=== PATIENT | male | born 2000 | race Caucasian/White ===

== ENCOUNTER 2024-10-30 00:21 | Emergency (ER) | payer MEDICAID, SELFPAY ==
[2024-10-30 00:53] VITALS: BP 126/66; PULSE 78; RESP 18; TEMP 36.9; O2SAT 98; BMI 28.4
--- NOTE | 2024-10-30 01:12 | EDNOTE_ITS ---
Lower Extremity Injury RME/HPI General Chief Complaint: Ankle/Foot Injury Stated Complaint: LEFT BIG TOE PROBLEM Time Seen by Provider: 10/30/24 00:55 Arrival date/time: 10/30/24 00:21 Related Data Previous Rx's ?Medication ?Instructions ?Recorded cephalexin 500 mg tablet 1,000 mg (2 x 500 mg) PO BID 7 10/30/24 days #28 tabs Allergies Allergy/AdvReac Type Severity Reaction Status Date / Time No Known Allergies Allergy Verified 10/30/24 00:23 Review of Systems Review of Systems Systems Reviewed: All systems reviewed, normal except as documented Past Medical History Social History SMOKING STATUS: Never smoker Past Medical History Comments PMH COMMENT: Previous history of ingrown toenails. ED Exam Narrative Physical exam: A&O, afebrile and non-toxic appearing 23 year old male , no acute distress. Bilateral great toenails cut extremely short. Left great toe with medial and lateral edges ingrown with current discharge. Moves all extremities well. Course Course Course Narrative: Patient was advised of the treatment options for his ingrown toenail. These options include: #1) Provider recommended: Removal of the entire toenail of the left great toe due to medial and lateral ingrown edges. #2) oral antibiotics and soaks at home with Epsom salts. Patient chooses to be discharged home with Oral antibiotics and do Epsom Salt soaks at home. Patient was given his first dose of keflex prior to discharge. Quality Measures none Orders Category Date Time Status cephALEXin [Keflex] Med 10/30/24 01:15 Discontinued 500 mg PO X1 ONE Vital Signs Vital signs: Vital Signs Temperature 98.4 F 10/30/24 00:53 Pulse Rate 78 10/30/24 00:53 Respiratory Rate 18 10/30/24 00:53 Blood Pressure 126/66 10/30/24 00:53 Pulse Oximetry (%) 98 10/30/24 00:53 Oxygen Delivery Method Room Air 10/30/24 00:53 Extremity Injury, Lower MDM Narrative MDM Narrative:: Symptoms, exam and diagnostic studies are consistent with: Left great toenail. Bilateral edges ingrown. Patient was discharged home in stable condition. Patient/family advised to follow-up with their PCP in 24-48 hours. Encouraged to return to the ED for any new or worsening symptoms. Patient data External records reviewed:: None Clinical information provided by:: patient Social determinants that could affect healthcare access:: none Patient has the following chronic illnesses:: N/A How is presenting disease/condition affected by chronic disease/condition?: no chronic disease Evaluation data The following diagnostics were reviewed and interpreted by me:: other (specify) (N/A) Lab and/or radiology exams considered but not ordered:: N/A Interpretation Summary: N/A Medications / Prescriptions Medications or Prescriptions considered but not ordered:: N/A Medication administrations:: Medication Administration History Discontinued Medications Cephalexin HCl (Cephalexin 250 Mg Capsule) 500 mg PO X1 ONE Stop: 10/30/24 01:16 Last Admin: 10/30/24 01:21 Dose: 500 mg Documented By: CVL Keflex 500 mg p.o. Consultations Consultation(s) initiated? (list below): No Diagnosis Extremity Injury, Lower Differential Diagnosis: other (Ingrown toenail, left g reat toe.) Most likely diagnosis given after review of the tests above:: Ingrown toenail, bilateral edges of left great toe. Admission Indicated Admission indicated?: not indicated Explain why admission is indicated or not indicated:: Patient is stable for discharge Admission Request Was there a request for admission?: No Disposition Plan Disposition Plan: Discharge Discharge Attestation Discharge Attestation: The patient and all family members were given an opportunity to ask questions and understood the discharge instructions. Discharge instructions specifically effects, indications for sooner follow up or return to the emergency department, and the expected course of current diagnosis. Patient condition: Stable Discharge Plan Plan Patient Disposition: HOME (Self Care) Discharge Disposition comment: Stable Prescriptions/Referrals Prescriptions/Med Rec: New cephalexin 500 mg tablet 1,000 mg PO BID 7 Days Qty: 28 0RF Problem List Clinical Impression: Ingrown toenail of left foot with infection Patient/Caregiver Discharge Instructions Education Materials: Understanding Ingrown Toenails, ED Toenail Ingrown Infec Abx Onl Additional Instructions: Take the antibiotics as prescribed and complete the course even though you may be feeling better. Soak the left foot in Epsom salts and massage the edges of the ingrown areas. Follow-up with your primary care physician in 24 to 48 hours. Return to the ED for any new or worsening symptoms. Print Language: Faroese Stand Alone Forms: Lurdes Award Info., Patient Portal Info Letter PA/[employer] Supervising Physician PA/[employer] Supervising Physician: Dr. Lopez
== END 2024-10-30 02:06 | disposition home or self-care (01) ==
LOC: SERX 03:26
PROVIDERS: Emergency Provider Emergency Medicine; PCP Family Medicine
DX: L60.0 Ingrowing nail (principal)
CPT/HCPCS: 99283; A9270

== ENCOUNTER 2024-11-25 20:17 | Emergency (ER) | payer MEDICAID, SELFPAY ==
[2024-11-25 20:18] VITALS: BMI 38.0
--- NOTE | 2024-11-25 21:03 | PD.EDDENTL ---
ED Dental RME/HPI General Chief complaint: Dental/Oral/Throat Stated complaint: THROAT PAIN Time Seen by Provider: 11/25/24 20:25 Arrival date/time: 11/25/24 20:17 This is a case of 23-year-old male with no medical history came into the emergency room due to sore throat for 2 days no other symptoms noted no fever no chills no cough no congestion Limitations: no limitations Related Data Previous Rx's ?Medication ?Instructions ?Recorded amoxicillin 875 mg-potassium 1 tab PO Q12H #20 tabs 11/25/24 clavulanate 125 mg tablet lidocaine HCl 2 % mucosal solution 10 ml PO Q4HR PRN sore throat #100 11/25/24 (Lidocaine Viscous) mL Allergies Allergy/AdvReac Type Severity Reaction Status Date / Time No Known Allergies Allergy Verified 11/25/24 20:19 Review of Systems Review of Systems Systems Reviewed: All systems reviewed, normal except as documented Constitutional Constitutional: Reports system reviewed and no additional complaints, except as documented and Reports as per HPI Cardiovascular Cardiovascular: Reports system reviewed and no additional complaints, except as documented and Reports as per HPI Respiratory Respiratory: Reports system reviewed and no additional complaints, except as documented Gastrointestinal Gastrointestinal: Reports system reviewed and no additional complaints, except as documented and Reports as per HPI Neurologic Neurologic: Reports system reviewed and no additional complaints, except as documented and Reports as per HPI Past Medical History Social History SMOKING STATUS: Never smoker ED Exam General Limitations: Present no limitations General appearance: Present alert, in no apparent distress and other (Is awake alert oriented not in distress nontoxic looking well-hydrated well-nourished) Head Head exam: Present atraumatic, normocephalic and normal inspection Eye Eye exam: Present normal appearance, PERRL and EOMI ENT ENT exam: Present normal exam, normal oropharynx, mucous membranes moist and other (Pharynx red tonsils were swollen red with exudate no peritonsillar abscess no drooling of saliva patient can speak full sentences Centor criteria is 1/4 the rest of the HEENT exam is normal) Neck Neck exam: Present normal inspection, full ROM and trachea midline Chest Chest inspection: Present normal inspection and symmetric chest wall rise; Absent tenderness Respiratory Respiratory exam: Present normal lung sounds bilaterally; Absent respiratory distress, wheezes, stridor, accessory muscle use or prolonged expiratory phase Cardiovascular Cardiovascular exam: Present regular rate, normal rhythm and normal heart sounds; Absent bradycardia, tachycardia, irregular rhythm, systolic murmur or diastolic murmur Abdominal Exam Abdominal exam: Present soft and normal bowel sounds Extremities Exam Extremities exam: Present normal inspection and full ROM Back Exam Back exam: Present normal inspection and full ROM Neurological Exam Neurological exam: Present alert, oriented X3, CN II-XII intact, normal gait and reflexes normal; Absent motor sensory deficit Psychiatric Psychiatric exam: Present normal affect and normal mood Skin Skin exam: Present warm, dry, intact and normal color Course Quality Measures none Vital Signs Vital signs: Vital signs stable oxygen saturation is normal Dental / Oral MDM Narrative MDM Narrative:: This is a case of 23-year-old male with no medical history came into the emergency room due to sore throat for 2 days no other symptoms noted no fever no chills no cough no congestion physical examination patient is awake alert oriented not in distress nontoxic looking patient tonsils noted to be swollen red with exudate pharynx red no peritonsillar abscess no drooling of saliva no muffled voice based on my physical examination and history patient symptoms suggestive of acute tonsillitis patient was discharged with Augmentin and lidocaine viscous patient will follow-up with PCP in 2 days for reevaluation and for any worsening symptoms or any emergent concern return to the emergency room immediately or call 911 Patient was discharged with comfortable condition walking with stable gait. Patient verbalized no further complains explained diagnosis and answered patient question. Patient is comfortable with the proposed management plan including the need to follow up with his/her primary care physician and any specialist if applicable Discussed patient for any urgent condition or worsening sx, He/She needed to go to emergency room immediately or call 911. Patient acknowledge the responsibility to follow up as instructed and to monitor her/his symptoms. For any persistence of the symptoms for more than 3-5 days return precaution advised. Discussed the result of the test and was given printed discharge instruction Patient data External records reviewed:: [facility] previous records Clinical information provided by:: patient Social determinants that could affect healthcare access:: none Patient has the following chronic illnesses:: None How is presenting disease/condition affected by chronic disease/condition?: no chronic disease Evaluation data The following diagnostics were reviewed and interpreted by me:: other (specify) Lab and/or radiology exams considered but not ordered:: None Interpretation Summary: None Medications / Prescriptions Medications or Prescriptions considered but not ordered:: Given Medication administrations:: Given Consultations Consultation(s) initiated? (list below): No Diagnosis Dental Differential Diagnosis: other (Tonsillitis) Most likely diagnosis given after review of the tests above:: Tonsillitis Admission Indicated Admission indicated?: not indicated Explain why admission is indicated or not indicated:: Not indicated Admission Request Was there a request for admission?: No Admission Attestation Admission request attestation: Not indicated Disposition Plan Disposition Plan: Discharge Discharge Attestation Discharge Attestation: The patient and all family members were given an opportunity to ask questions and understood the discharge instructions. Discharge instructions specifically effects, indications for sooner follow up or return to the emergency department, and the expected course of current diagnosis. Patient condition: Stable Discharge Plan Plan Patient Disposition: HOME (Self Care) Patient condition on transfer: Stable Prescriptions/Referrals Prescriptions/Med Rec: New amoxicillin-pot clavulanate 875-125 mg tablet 1 tab PO Q12H Qty: 20 0RF lidocaine HCl [Lidocaine Viscous] 2 % solution 10 ml PO Q4HR PRN (Reason: sore throat) Qty: 100 0RF Problem List Clinical Impression: Acute tonsillitis Patient/Caregiver Discharge Instructions Education Materials: Tonsillitis in Adults Additional Instructions: Follow-up with your primary care physician in 2 days for reevaluation worsening symptoms or any emergent concern call 911 or go to the nearest emergency room keep hydrated finish the course of antibiotic warm saline gargle is advised Print Language: Canadian Stand Alone Forms: Lurdes Award Info., Patient Portal Info Letter PA/MELISSA Supervising Physician PA/MELISSA Supervising Physician: Dr. Sylvester Morales
[2024-11-25 21:18] VITALS: BP 131/83; PULSE 92; RESP 16; TEMP 37.2; O2SAT 98
== END 2024-11-25 21:19 | disposition home or self-care (01) ==
LOC: SERX 21:51
PROVIDERS: Emergency Provider Emergency Medicine
DX: J03.90 Acute tonsillitis, unspecified (principal)
CPT/HCPCS: 99281

== ENCOUNTER 2024-12-06 09:55 | Emergency (ER) | payer MEDICAID, SELFPAY ==
[2024-12-06 10:25] VITALS: BP 123/83; PULSE 88; RESP 18; TEMP 36.9; O2SAT 99; BMI 30.4
--- NOTE | 2024-12-06 10:29 | PD.EDRME ---
Rapid Medical Screening Exam [facility] Arrival date/time: 12/06/24 09:55 24-year-old male with no known medical history presents to the emergency room with a chief complaint of facial swelling, difficulty breathing, lip swelling x 2 days. Patient states symptoms began yesterday and have progressively gotten worse. Patient uses EpiPen last night. I have greeted and performed a focused initial assessment of this patient. A comprehensive ED assessment and evaluation of the patient, analysis of all test results, and completion of the medical decision making process will be conducted by additional ED providers. Chief Complaint: Shortness of Breath/Dyspnea Time Seen by Provider: 12/06/24 10:05 Vital signs: Vital Signs Temperature 98.5 F 12/06/24 10:25 Pulse Rate 88 12/06/24 10:25 Respiratory Rate 18 12/06/24 10:25 Blood Pressure 123/83 12/06/24 10:25 Pulse Oximetry (%) 99 12/06/24 10:25 Oxygen Delivery Method Room Air 12/06/24 10:25 Vital signs reviewed by provider: Yes
[2024-12-06] MEDS: DEXAMETHASONE SOD PHOS INJ 10 MG/ML VIAL PO (10:42)
[2024-12-06] MEDS: DiphenhydrAMINE ELIX 25 MG/10 ML UDC PO (10:43)
[2024-12-06] MEDS: FAMOTIDINE 20 MG TABLET PO (10:43)
--- NOTE | 2024-12-06 12:02 | EDNOTE_ITS ---
ED SOB =RME/HPI General Chief Complaint: Shortness of Breath/Dyspnea Stated Complaint: SOB SINCE LAST NIGHT, SWELLING OF FACE/LIPS Time Seen by Provider: 12/06/24 10:05 Source: patient Arrival date/time: 12/06/24 09:55 24-year-old male with no known medical history presents to the emergency room with a chief complaint of facial swelling, difficulty breathing, lip swelling x 2 days. Patient states symptoms began yesterday and have progressively gotten worse. Patient uses EpiPen last night. Mode of arrival: ambulatory Limitations: no limitations RME / HPI RME / HPI Narrative: 12/06/24 09:55 24-year-old male with no known medical history presents to the emergency room with a chief complaint of facial swelling, difficulty breathing, lip swelling x 2 days. Patient states symptoms began yesterday and have progressively gotten worse. Patient uses EpiPen last night. I have greeted and performed a focused initial assessment of this patient. A comprehensive ED assessment and evaluation of the patient, analysis of all test results, and completion of the medical decision making process will be conducted by additional ED providers. Related Data Previous Rx's ?Medication ?Instructions ?Recorded amoxicillin 875 mg-potassium 1 tab PO Q12H #20 tabs clavulanate 125 mg tablet lidocaine HCl 2 % mucosal solution 10 ml PO Q4HR PRN s ore throat #100 11/25/24 (Lidocaine Viscous) mL Allergies Allergy/AdvReac Type Severity Reaction Status Date / Time No Known Allergies Allergy Verified 12/06/24 09:58 Review of Systems Review of Systems Systems Reviewed: All systems reviewed, normal except as documented Constitutional Constitutional: Reports system reviewed and no additional complaints, except as documented, Denies fatigue, Denies fever(s), Denies headache(s) and Denies weakness Eyes Eyes: Reports system reviewed and no additional complaints, except as doc umented, Denies blurry vision and Denies change in vision ENT Ears, Nose, Mouth, and Throat: Reports system reviewed and no additional complaints, except as documented, Denies otalgia, Denies headache(s), Reports lip swelling, Denies nasal congestion, Denies throat swelling, Denies tongue swelling and Denies vertigo Cardiovascular Cardiovascular: Reports system reviewed and no additional complaints, except as documented, Denies chest pain, Denies dyspnea and Denies dyspnea on exertion Respiratory Respiratory: Reports system reviewed and no additional complaints, except as documented, Denies chest congestion, Denies cough, Denies dyspnea, Denies dyspnea on exertion and Denies wheezing Gastrointestinal Gastrointestinal: Reports system reviewed and no additional complaints, except as documented, Denies abdominal pain, Denies cramping, Denies nausea and Denies vomiting Genitourinary Genitourinary: Reports system reviewed and no additional complaints, except as documented, Denies dysuria and Denies hematuria Musculoskeletal Musculoskeletal: Reports system reviewed and no additional complaints, except as documented and Denies back pain Integumentary/Breasts Skin/Breast: Reports system reviewed and no additional complaints, except as documented and Denies wounds Neurologic Neurologic: Reports system reviewed and no additional complaints, except as documented, Denies confusion, Denies headache(s), Denies lack of coordination, Denies vertigo and Denies weakness Psychiatric Psychiatric: Reports system reviewed and no additional complaints, except as documented, Denies anxiety, Denies confusion, Denies depression, Denies paranoia, Denies suicidal ideation and Denies tactile hallucinations Endocrine Endocrine: Reports system reviewed and no additional complaints, except as documented and Denies fatigue Hematologic/Lymphatic Hematologic/Lymphatic: Reports system reviewed and no additional complaints, except as documented and Denies lymphadenopathy Allergic/Immunologic Allergic/Immunologic: Reports system reviewed and no additional complaints, except as documented, Reports lip swelling, Reports seasonal rhinorrhea, Denies throat swelling, Denies tongue swelling, Denies urticaria and Denies wheezing ED Exam General Limitations: Present no limitations General appearance: Present alert and in no apparent distress Head Head exam: Present atraumatic Eye Eye exam: Present normal appearance, PERRL and EOMI ENT ENT exam: Present normal exam, normal oropharynx and mucous membranes moist Neck Neck exam: Present normal inspection, full ROM and trachea midline Chest Chest inspection: Present normal inspection and symmetric chest wall rise Respiratory Respiratory exam: Present normal lung sounds bilaterally; Absent respiratory distress, wheezes, stridor, accessory muscle use or prolonged expiratory phase Cardiovascular Cardiovascular exam: Present regular rate, normal rhythm and normal heart sounds; Absent tachycardia Abdominal Exam Abdominal exam: Present soft and normal bowel sounds Extremities Exam Extremities exam: Present normal inspection and full ROM Back Exam Back exam: Present normal inspection and full ROM Neurological Exam Neurological exam: Present alert, oriented X3 and CN II-XII intact Psychiatric Psychiatric exam: Present normal affect and normal mood Skin Skin exam: Present warm, dry, intact and normal color Course Quality Measures none Orders Category Date Time Status Dexamethasone Inj [Decadron Inj] Med 12/06/24 10:27 Discontinued 10 mg PO X1 ONE DiphenhydrAMINE [Benadryl] Med 12/06/24 10:27 Discontinued 25 mg PO X1 ONE Famotidine [Pepcid] Med 12/06/24 10:27 Discontinued 20 mg PO X1 ONE Vital Signs Vital signs: Vital Signs Temperature 98.5 F 12/06/24 10:25 Pulse Rate 88 12/06/24 10:25 Respiratory Rate 18 12/06/24 10:25 Blood Pressure 123/83 12/06/24 10:25 Pulse Oximetry (%) 99 12/06/24 10:25 Oxygen Delivery Method Room Air 12/06/24 10:25 Shortness of Breath / Dyspnea MDM Narrative MDM Narrative:: 24-year-old male with no known medical history presents to the emergency room with a chief complaint of facial swelling, difficulty breathing, lip swelling x 2 days. Patient states symptoms began yesterday and have progressively gotten worse. Patient uses EpiPen last night. Patient is hemodynamically stable and in no apparent distress Physical examination shows some lip swelling and right-sided facial swelling. Patient states his symptoms began yesterday and this morning he woke up with the lip swelling. Antihistamines were given with significant improvement to the patient's symptoms. Physical examination shows clear bilateral lung sounds there is no wheezing stridor or any abnormal breath sounds. There is no throat swelling or tongue swelling noted. O2 saturation is 99% on room air. The patient was kept here in the emergency room for observation for 2 hours Patient was discharged and educated to follow-up with primary care provider in the next 24 to 48 hours and return to the emergency room for any evidence of worsening signs or symptoms Patient data External records reviewed:: [facility] previous records Clinical information provided by:: patient Social determinants that could affect healthcare access:: none Patient has the following chronic illnesses:: N/A How is presenting disease/condition affected by chronic disease/condition?: no chronic disease Evaluation data The following diagnostics were reviewed and interpreted by me:: lab results and radiology exam(s) Lab and/or radiology exams considered but not ordered:: Labs and radiology exams considered and ordered Interpretation Summary: N/A Medications / Prescriptions Medications or Prescriptions considered but not ordered:: Medication given Medication administrations:: Medication Administration History Discontinued Medications Dexamethasone Sodium Phosphate (Dexamethasone Sod Phos Inj 10 Mg/Ml Vial) 10 mg PO X1 ONE Stop: 12/06/24 10:28 Last Admin: 12/06/24 10:42 Dose: 10 mg Documented By: Diphenhydramine HCl (Diphenhydramine Elix 25 Mg/10 Ml Udc) 25 mg PO X1 ONE Stop: 12/06/24 10:28 Last Admin: 12/06/24 10:43 Dose: 25 mg Documented By: Famotidine (Famotidine 20 Mg Tablet) 20 mg PO X1 ONE Stop: 12/06/24 10:28 Last Admin: 12/06/24 10:43 Dose: 20 mg Documented By: Medication given Consultations Consultation(s) initiated? (list below): No Diagnosis Shortness of Breath Differential Diagnosis: other (Allergic reaction/anaphylactic reaction/angioedema) Most likely diagnosis given after review of the tests above:: Allergic reaction Admission Indicated Admission indicated?: not indicated Admission Request Was there a request for admission?: No Disposition Plan Disposition Plan: Discharge Discharge Attestation Discharge Attestation: The patient and all family members were given an opportunity to ask questions and understood the discharge instructions. Discharge instructions specifically effects, indications for sooner follow up or return to the emergency department, and the expected course of current diagnosis. Patient condition: Stable Discharge Plan Plan Patient Disposition: HOME (Self Care) Discharge Disposition comment: Stable Prescriptions/Referrals Prescriptions/Med Rec: No Action amoxicillin-pot clavulanate 875-125 mg tablet 1 tab PO Q12H Qty: 20 0RF lidocaine HCl [Lidocaine Viscous] 2 % solution 10 ml PO Q4HR PRN (Reason: sore throat) Qty: 100 0RF Problem List Clinical Impression: Allergic reaction Patient/Caregiver Discharge Instructions Additional Instructions: Please follow-up with your primary care provider in the next 24 to 48 hours For any evidence of worsening signs or symptoms return to the emergency room immediately Print Language: South African Stand Alone Forms: Lurdes Award Info., Patient Portal Info Letter PA/[employer] Supervising Physician PA/[employer] Supervising Physician: Dr. Florentino
== END 2024-12-06 12:30 | disposition home or self-care (01) ==
LOC: SERX 12:42
PROVIDERS: Emergency Provider Family Medicine
DX: T78.40XA Allergy, unspecified, initial encounter (principal); X58.XXXA Exposure to other specified factors, initial encounter
CPT/HCPCS: 99283; J1100; A9270

== ENCOUNTER 2024-12-25 11:17 | Emergency (ER) | payer MEDICAID, SELFPAY ==
[2024-12-25 11:25] VITALS: BP 147/79; PULSE 96; RESP 20; TEMP 36.8; O2SAT 98; BMI 41.6
--- NOTE | 2024-12-25 11:27 | XR_ITS ---
Examination: AP chest single view Technique one AP portable upright chest single view Date and time: December 25, 2024 1221 hours INDICATIONS: Shortness of breath today. FINDINGS: Normal heart size. Lungs are clear. The osseous structures are intact IMPRESSION: No active disease
--- NOTE | 2024-12-25 11:42 | PD.EDALLER ---
ED Allergic Reaction RME/HPI General Chief complaint: Shortness of Breath/Dyspnea Stated complaint: CAN'T BREATH Time Seen by Provider: 12/25/24 11:29 Arrival date/time: 12/25/24 11:17 RME / HPI RME / HPI narrative: 24-year-old male patient came in for evaluation regarding complaints of shortness of breath. Patient been having on and off hives for several months at least 3 months, and this morning patient woke up with lips swollen and throat feels closing and shortness of breath. Patient told me that he just finished cephalexin few days ago for infection but the patient does not know that was started by his PCP. Patient denies any chest pain. Denies any other complaints except for itchiness. No medication was taken prior to ER visit. Related Data Previous Rx's ?Medication ?Instructions ?Recorded amoxicillin 875 mg-potassium 1 tab PO Q12H #20 tabs 11/25/24 clavulanate 125 mg tablet lidocaine HCl 2 % mucosal solution 10 ml PO Q4HR PRN sore throat #100 11/25/24 (Lidocaine Viscous) mL cetirizine 10 mg tablet (Zyrtec) 10 mg PO QDAY PRN allergy symptoms 12/25/24 #10 tabs famotidine 40 mg tablet (Pepcid) 40 mg PO BID #20 tabs 12/25/24 prednisone 50 mg tablet 50 mg PO QDAY #7 tabs 12/25/24 Allergies Allergy/AdvReac Type Severity Reaction Status Date / Time diphenhydramine (From Allergy Verified 12/25/24 12:19 Benadryl) Review of Systems Review of Systems Narrative Review of Systems: Review of system reviewed and within normal limits except mentioned in HPI ED Exam Narrative Physical exam: VITAL SIGNS: Reviewed. GENERAL APPEARANCE: Alert and interactive, follows commands, no acute distress, HEAD AND FACE: Non-traumatic. ENT: PERRL, pink conjunctivitis, eyelid no trauma, Mucous membrane moist. Upper and lower lips slightly swollen, no rashes noted on the oral mucosa, uvula not swollen tonsil not swollen uvula in the midline NECK: Supple, nontender, no nuchal rigidity. CHEST: No tenderness, no crepitus, no paradoxical movement, no retractions. LUNGS: Clear, well ventilated, symmetric, no rales, no wheezing, no ronchi, no stridor, good breath sounds bilaterally. HEART: Regular rate, regular rhythm, no murmur, no gallops. ABDOMEN: Soft, positive bowel sounds, nondistended, no guarding, nontender, no rebound, no masses, RECTAL: Deferred. GENITAL: Deferred. NEUROLOGICAL: Gross motor function intact sensory function intact, Appropriate for age. MUSCULOSKELETAL: low back nontender, full range of motion. EXTREMITIES: Nontender, full range of motion. SKIN: Color pink, dry, multiple hives noted on the upper extremity and lower extremity, no lacerations, no abrasions, no contusions. LYMPHATICS: Deferred. Course Quality Measures none Orders Category Date Time Status Continuous Pulse Oximetry NOW Care 12/25/24 11:27 Completed XR chest 1V portable Stat Exams 12/25/24 11:27 Completed CBC [CBC] Stat Lab 12/25/24 12:00 Completed CMP [Comprehensive Metabolic Panel] Stat Lab 12/25/24 12:00 Completed DiphenhydrAMINE INJ [Benadryl Inj] Med 12/25/24 11:27 Discontinued 25 mg IVP X1 ONE DiphenhydrAMINE INJ [Benadryl Inj] Med 12/25/24 11:41 Discontinued 50 mg IVP X1 ONE EPINEPHrine Inj [Adrenalin Inj] Med 12/25/24 11:41 Discontinued 0.3 mg IM X1 ONE Famotidine [Pepcid] Med 12/25/24 11:27 Discontinued 40 mg PO X1 ONE MethylPREDNISolone.* [SoluMEDROL Inj] Med 12/25/24 11:27 Discontinued 125 mg IVP X1 ONE Ringers Lactated 1000 ml [Lactated Ringers] 1,000 ml Med 12/25/24 11:41 Discontinued IV 999 mls/hr Vital Signs Vital signs: Vital Signs Temperature 98.2 F 12/25/24 11:25 Pulse Rate 96 12/25/24 11:25 Respiratory Rate 20 12/25/24 11:25 Blood Pressure 147/79 H 12/25/24 11:25 Pulse Oximetry (%) 98 12/25/24 11:25 Oxygen Delivery Method Room Air 12/25/24 11:25 Allergic Reaction MDM Narrative MDM Narrative:: 24-year-old male patient came in for evaluation regarding complaints of shortness of breath. Patient been having on and off hives for several months at least 3 months, and this morning patient woke up with lips swollen and throat feels closing and shortness of breath. Patient told me that he just finished cephalexin few days ago for infection but the patient does not know that was started by his PCP. Patient denies any chest pain. Denies any other complaints except for itchiness. No medication was taken prior to ER visit. Patient's workup today all came back unremarkable. Including chest x-ray which came back unremarkable. Results discussed with the patient. Patient was given IV fluids, epinephrine IM, Solu-Medrol, Pepcid, with significant improvement of symptoms. Patient's lip swelling is totally gone. Patient stable for discharge home. Patient appears nontoxic and hemodynamically stable .Decision to discharge the patient. The patient/family was given an opportunity to ask questions and understood their discharge instructions. Discharge instructions specifically included follow up provider and time frame, current and/or new medications and possible side effects, indications for sooner follow up or return to the emergency department, and the expected course of current diagnosis. Patient reports feeling better as well and giving evidence of significant clinical improvement, I believe patient is now a candidate for discharge. Patient data External records reviewed:: None Clinical information provided by:: patient Social determinants that could affect healthcare access:: none Patient has the following chronic illnesses:: None How is presenting disease/condition affected by chronic disease/condition?: no chronic disease Evaluation data The following diagnostics were reviewed and interpreted by me:: lab results and radiology exam(s) Lab and/or radiology exams considered but not ordered:: None Interpretation Summary: See results in MDM Medications / Prescriptions Medications or Prescriptions considered but not ordered:: None Medication administrations:: Medication Administration History Discontinued Medications Diphenhydramine HCl (Diphenhydramine Inj 50 Mg/Ml Vial) 25 mg IVP X1 ONE Stop: 12/25/24 11:28 Last Admin: 12/25/24 11:50 Dose: Not Given Documented By: DO Non-Admin Reason: Cancelled by Provider Diphenhydramine HCl (Diphenhydramine Inj 50 Mg/Ml Vial) 50 mg IVP X1 ONE Stop: 12/25/24 11:42 Last Admin: 12/25/24 12:18 Dose: Not Given Documented By: DO Non-Admin Reason: Allergy Epinephrine HCl (Epinephrine Inj 1 Mg/Ml Amp) 0.3 mg IM X1 ONE Stop: 12/25/24 11:42 Last Admin: 12/25/24 12:39 Dose: 0.3 mg Documented By: DO Famotidine (Famotidine 20 Mg Tablet) 40 mg PO X1 ONE Stop: 12/25/24 11:28 Last Admin: 12/25/24 12:38 Dose: 40 mg Documented By: DO Lactated Ringer's (Lactated Ringers) 1,000 mls @ 999 mls/hr IV .Q1H1M ONE Stop: 12/25/24 12:41 Last Infusion: 12/25/24 14:43 Dose: Infused Documented By: Admin: 12/25/24 12:44 Dose: 999 mls/hr Documented By: DO Methylprednisolone Sodium Succinate (Methylprednisolone Sod Succ 62.5 Mg/Ml 2ml Vial) 125 mg IVP X1 ONE Stop: 12/25/24 11:28 Last Admin: 12/25/24 12:39 Dose: 125 mg Documented By: DO See MDM Consultations Consultation(s) initiated? (list below): No Diagnosis Differential Diagnosis allergic reaction: anaphylaxis and allergic reaction Most likely diagnosis given after review of the tests above:: Allergic reaction Admission Indicated Admission indicated?: not indicated Explain why admission is indicated or not indicated:: None Admission Request Was there a request for admission?: No Disposition Plan Disposition Plan: Discharge Discharge Attestation Discharge Attestation: The patient and all family members were given an opportunity to ask questions and understood the discharge instructions. Discharge instructions specifically effects, indications for sooner follow up or return to the emergency department, and the expected course of current diagnosis. Patient condition: Stable Discharge Plan Plan Patient Disposition: HOME (Self Care) Discharge Disposition comment: Stable Prescriptions/Referrals Prescriptions/Med Rec: New prednisone 50 mg tablet 50 mg PO QDAY Qty: 7 0RF cetirizine [Zyrtec] 10 mg tablet 10 mg PO QDAY PRN (Reason: allergy symptoms) Qty: 10 0RF famotidine [Pepcid] 40 mg tablet 40 mg PO BID Qty: 20 0RF No Action amoxicillin-pot clavulanate 875-125 mg tablet 1 tab PO Q12H Qty: 20 0RF lidocaine HCl [Lidocaine Viscous] 2 % solution 10 ml PO Q4HR PRN (Reason: sore throat) Qty: 100 0RF Referrals: No Primary/Family,Physician [Primary Care Provider] - In 1 week Problem List Clinical Impression: Allergic reaction Patient/Caregiver Discharge Instructions Discharge Activity: activity as tolerated Education Materials: Allergy Overview Additional Instructions: Thank you for the opportunity for serving you today. You are stable for discharged . You are advised to: Follow-up with your PCP in 1 to 2 days Return to ED for worsening of symptoms Increase oral fluids Take medication as prescribed Ask your PCP to refer you to an squirrel worker Print Language: [place] Stand Alone Forms: [facility] Award Info., Patient Portal Info Letter PA/GLASS TECHNICIAN/INSTALLER Supervising Physician PA/MELISSA Supervising Physician: Prashanth Payne
[2024-12-25 12:19] LABS: Basophils # (Auto) 0.0 Thou/mm3 (0.0-0.2); Basophils % (Auto) 0 % (0-2.5); Eosinophils # (Auto) 0.1 Thou/mm3 (0.0-0.5); Eosinophils % (Auto) 2 % (0-10); Hematocrit 45.1 % (41.0-53.0); Hemoglobin 15.2 g/dL (13.5-16.0); Immature Granulocytes Auto 0.02 Thou/mm3 (0.00-0.00); Lymphocytes # (Auto) 1.8 Thou/mm3 (1.0-4.8); Lymphocytes % (Auto) 24 % (10-50); Mean Corpuscular HGB Conc 33.7 g/dl (31.0-37.0); Mean Corpuscular Hemoglobin 28.3 pg (25.0-35.0); Mean Corpuscular Volume 84 fL (80-100); Monocytes # (Auto) 0.5 Thou/mm3 (0.0-0.8); Monocytes % (Auto) 6 % (0-12); Neutrophils # (Auto) 5.3 Thou/mm3 (1.8-7.7); Neutrophils % (Auto) 68 % (37-80); Nucleated Red Blood Cell # 0.00 Thou/mm3 (0.00-0.00); Nucleated Red Blood Cell % 0 /100 WBC (0); Platelet Count 215 Thou/mm3 (140-440); RDW Standard Deviation 40.8 fL (35.1-43.9); Red Blood Count 5.37 Miln/mm3 (4.50-5.90); White Blood Count 7.7 Thou/mm3 (3.8-10.6)
[2024-12-25 12:32] LABS: Alanine Aminotransferase 27 U/L (10-49); Albumin, Serum 4.6 gm/dL (3.5-5.0); Albumin/Globulin Ratio 2.0 (1.2-2.2); Alkaline Phosphatase 97 U/L (46-116); Anion Gap 6 (7-16); Aspartate Amino Transferase 19 U/L (0-34); BUN/Creatinine Ratio 7 Ratio (12-20); Bilirubin,Total 0.5 mg/dL (0.3-1.2); Blood Urea Nitrogen 8 mg/dL (9-23); Calcium 9.9 mg/dL (8.3-10.6); Calcium (Corrected) 9.9 mg/dL (8.5-10.1); Carbon Dioxide 27.7 mMol/L (20.0-31.0); Chloride 107 mMol/L (98-107); Creatinine (Component) 1.1 mg/dL (0.6-1.3); Estimated Creatinine Clearance 135.2 mL/min (>60); Globulin 2.3 gm/dL (2.3-3.5); Glucose 92 mg/dL (74-106); Osmolality,Calculated 279 (275-295); Potassium 3.8 mMol/L (3.4-5.1); Sodium 141 mMol/L (136-145); Total Protein 6.9 gm/dL (5.7-8.2); eGFR > 60 See Note
[2024-12-25] MEDS: FAMOTIDINE 20 MG TABLET 40 MG PO (12:38)
[2024-12-25 12:39] VITALS: BP 153/86; PULSE 93
[2024-12-25] MEDS: MethylPREDNISolone SOD SUCC 62.5 MG/ML 2ML VIAL 125 MG IVP (12:39)
[2024-12-25] MEDS: EPINEPHrine INJ 1 MG/ML AMP 0.3 MG IM (12:39)
[2024-12-25] MEDS: RINGERS LACTATED 1000 ML 1,000 ML 999 ML IV (12:44)
[2024-12-25 14:43] VITALS: BP 135/81; PULSE 98; RESP 16; TEMP 37.1; O2SAT 97
== END 2024-12-25 14:56 | disposition home or self-care (01) ==
PROVIDERS: Nurse Practitioner Family; Emergency Provider Emergency Medicine
DX: T78.40XA Allergy, unspecified, initial encounter (principal)
CPT/HCPCS: 36415; 71045; 80053; 85025; 96361; 96372; 96374; 99283; J0166; J2919; J7120; A9270

== ENCOUNTER 2025-01-18 15:08 | Emergency (ER) | payer MEDICAID, SELFPAY ==
[2025-01-18 15:08] VITALS: BMI 41.8
[2025-01-18 15:14] VITALS: BP 121/70; PULSE 89; RESP 20; TEMP 36.7; O2SAT 98
[2025-01-18] MEDS: MethylPREDNISolone SOD SUCC 62.5 MG/ML 2ML VIAL 125 MG IM (15:44)
[2025-01-18] MEDS: FAMOTIDINE 20 MG TABLET 40 MG PO (15:44)
--- NOTE | 2025-01-18 16:55 | EDNOTE_ITS ---
<Statement entered by Suly Dickinson MD - 02/02/25 14:18> As co-signing physician, I was present and available for consult prn. I concur with the plan and care as documented by the midlevel provider. ED Allergic Reaction RME/HPI General Chief complaint: Allergic Reaction Stated complaint: PUFFY LIP, SOB X1 HR Time Seen by Provider: 01/18/25 15:18 Arrival date/time: 01/18/25 15:08 This is a 24-year-old male that comes into the emergency room with complaints of puffy lip for an hour. Patient states that he has had this allergic reaction on and off and he has been getting tested for it. Patient states that he started feeling like he was going to have a bad reaction so he used his EpiPen yesterday. Patient states he is allergic reaction this time is not that bad it is just mostly involving his upper and lower lip. Patient has a mild rash to arms but nowhere else. Patient denies chest pain shortness of breath. Related Data Previous Rx's ?Medication ?Instructions ?Recorded amoxicillin 875 mg-potassium 1 tab PO Q12H #20 tabs clavulanate 125 mg tablet lidocaine HCl 2 % mucosal solution 10 ml PO Q4HR PRN s ore throat #100 11/25/24 (Lidocaine Viscous) mL cetirizine 10 mg tablet (Zyrtec) 10 mg PO QDAY PRN all ergy symptoms 12/25/24 #10 tabs famotidine 40 mg tablet (Pepcid) 40 mg PO BID #20 tabs 12/25/24 prednisone 50 mg tablet 50 mg PO QDAY #7 tabs Allergies Allergy/AdvReac Type Severity Reaction Status Date / Time diphenhydramine (From Allergy Verified 01/18/25 15:10 Benadryl) Review of Systems Review of Systems Systems Reviewed: All systems reviewed, normal except as documented Past Medical History Social History SMOKING STATUS: Never smoker ED Exam Narrative Physical exam: VITAL SIGNS: Reviewed. GENERAL APPEARANCE: Alert and interactive, follows commands, no acute distress, HEAD AND FACE: Non-traumatic. Mild upper and lower lip swelling ENT: PERRL, conjuctiva pink and clear, eyelid no trauma, Mucous membrane moist. NECK: Supple, nontender, no nuchal rigidity. CHEST: No tenderness, no crepitus, no paradoxical movement, no retractions. LUNGS: Clear, well ventilated, symmetric, no rales, no wheezing, no rhonchi, no stridor, good breath sounds bilaterally. HEART: Regular rate, regular rhythm, no murmur, no gallops. ABDOMEN: Soft, nondistended, no guarding, nontender, no rebound, no masses, NEUROLOGICAL: Gross motor function intact sensory function intact, Appropriate for age. MUSCULOSKELETAL: low back nontender, full range of motion. EXTREMITIES: No redness no swelling no skin breakdown on bilateral foot and leg. Distal neurovascular status intact bilateral foot SKIN: Color pink, dry, mild slightly raised rash to arms Course Quality Measures none Orders Category Date Time Status DiphenhydrAMINE INJ [Benadryl Inj] Med 01/18/25 15:32 Discontinued 50 mg IM X1 ONE Famotidine [Pepcid] Med 01/18/25 15:32 Discontinued 40 mg PO X1 ONE MethylPREDNISolone.* [SoluMEDROL Inj] Med 01/18/25 15:32 Discontinued 125 mg IM X1 ONE Vital Signs Vital signs: Vital Signs Temperature 98.1 F 01/18/25 15:14 Pulse Rate 89 01/18/25 15:14 Respiratory Rate 20 01/18/25 15:14 Blood Pressure 121/70 01/18/25 15:14 Pulse Oximetry (%) 98 01/18/25 15:14 Oxygen Delivery Method Room Air 01/18/25 15:14 Allergic Reaction MDM Narrative MDM Narrative:: I spoke to patient at length. Patient states that he is allergic to Benadryl. It appears that they gave it to him last time patient states he is not sure. I encouraged patient to make sure that he gets his allergy testing done he has a follow-up appointment. Today I treated patient with Solu-Medrol and Pepcid. Will send patient home with steroids and Pepcid. Patient told to follow-up with primary provider in 1 to 2 days. [place] to the emergency room symptoms change or worsen. Patient has an EpiPen at home already. Dragon dictation: Although this document has been carefully reviewed, there may still be some phonetic and other typographical errors. These errors are purely grammatical due to imperfections in the software program and should not be construed in any way to compromise the substance of the patient's medical care during this visit. Patient data External records reviewed:: [facility] previous records Clinical information provided by:: patient Social determinants that could affect healthcare access:: none Patient has the following chronic illnesses:: Denies How is presenting disease/condition affected by chronic disease/condition?: no chronic disease Evaluation data The following diagnostics were reviewed and interpreted by me:: other (specify) (None) Lab and/or radiology exams considered but not ordered:: None Interpretation Summary: See note Medications / Prescriptions Medications or Prescriptions considered but not ordered:: None Medication administrations:: Medication Administration History Discontinued Medications Diphenhydramine HCl (Diphenhydramine Inj 50 Mg/Ml Vial) 50 mg IM X1 ONE Stop: 01/18/25 15:33 Last Admin: 01/18/25 15:45 Dose: Not Given Documented By: OA Non-Admin Reason: Discontinued Famotidine (Famotidine 20 Mg Tablet) 40 mg PO X1 ONE Stop: 01/18/25 15:33 Last Admin: 01/18/25 15:44 Dose: 40 mg Documented By: OA Methylprednisolone Sodium Succinate (Methylprednisolone Sod Succ 62.5 Mg/Ml 2ml Vial) 125 mg IM X1 ONE Stop: 01/18/25 15:33 Last Admin: 01/18/25 15:44 Dose: 125 mg Documented By: OA See MAR Consultations Consultation(s) initiated? (list below): No Diagnosis Most likely diagnosis given after review of the tests above:: Allergic reaction Admission Indicated Admission indicated?: not indicated Admission Request Was there a request for admission?: No Disposition Plan Disposition Plan: Discharge Discharge Attestation Discharge Attestation: The patient and all family members were given an opportunity to ask questions and understood the discharge instructions. Discharge instructions specifically effects, indications for sooner follow up or return to the emergency department, and the expected course of current diagnosis. Patient condition: Stable Discharge Plan Plan Patient Disposition: HOME (Self Care) Patient condition on transfer: Stable Prescriptions/Referrals Prescriptions/Med Rec: No Action amoxicillin-pot clavulanate 875-125 mg tablet 1 tab PO Q12H Qty: 20 0RF lidocaine HCl [Lidocaine Viscous] 2 % solution 10 ml PO Q4HR PRN (Reason: sore throat) Qty: 100 0RF prednisone 50 mg tablet 50 mg PO QDAY Qty: 7 0RF cetirizine [Zyrtec] 10 mg tablet 10 mg PO QDAY PRN (Reason: allergy symptoms) Qty: 10 0RF famotidine [Pepcid] 40 mg tablet 40 mg PO BID Qty: 20 0RF Referrals: Sidra Parmar NP [Primary Care Provider] - In 1 week Problem List Clinical Impression: Allergic reaction Patient/Caregiver Discharge Instructions Discharge Activity: activity as tolerated Education Materials: ED Medicine Reaction: Allergic Additional Instructions: Follow up with primary provider in 1-2 days. Come back to ED if symptoms change or worsen Print Language: Faroese Stand Alone Forms: [employer]ur[employer] Award Info., Patient Portal Info Letter PA/BILINGUAL SPEECH THERAPIST Supervising Physician PA/BILINGUAL SPEECH THERAPIST Supervising Physician: shruti
== END 2025-01-18 17:02 | disposition home or self-care (01) ==
PROVIDERS: Emergency Provider Nurse Practitioner Family; PCP Nurse Practitioner Family
DX: T78.40XA Allergy, unspecified, initial encounter (principal)
CPT/HCPCS: 96372; 99282; J2919; A9270